=== PATIENT | female | born 1965 | race Caucasian/White ===

== ENCOUNTER 2023-04-20 13:37 | Outpatient (AMB) | payer OTHER, SELFPAY ==
--- NOTE | 2023-04-20 13:49 | HO.SPINEOV ---
Intake Intake Visit Reasons: Low back pain/herniated disc Intake Note: Ms. Lazo is here today c/o low back pain. MRI done @ [facility]/brought disc. Manager Front Required: No Assessment & Plan Assessment & Plan (1) Lumbar radiculopathy: Code(s): M54.16 - Radiculopathy, lumbar region Plan Milo is a 57 year old female who comes in with a CC of low back pain with radicular symptoms radiating down her right anterior thigh, the lateral side of her R tibialis terminating at her right EHL. She reports that sitting down for prolonged periods of time makes her symptoms worse. 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 She is self-referred to our office. She had an MRI completed at [facility] on April 04. She reports that she has had low back pain for the last 20 years since herniating a disc in her back in the late . She states that her pain has waxed and waned over the years at times becoming worse with periods of resolution and then worsening symptoms again. She was previously established with Dr. Mtz and saw him both in 2010 and a few months ago who evaluated her for this issue. He reportedly offered her a spinal fusion surgery at the level of her L5-S1 disc herniation. She is here today seeking a 2nd opinion. She reports she has tried taking tramadol, ibuprofen, Tylenol, and utilizing heat/ice without symptom improvement. She also has tried physical therapy, home care coordinator, acupuncture, and cortisone injections without sufficient relief. Of note she does report that she had cortisone injections in her SI joint as well as her low back, and states that she had no relief from this. PMH: Osteoarthritis, depression, PCOS, disc degeneration of the lumbar region, hysterectomy. Social hx: Patient does not smoke, disclosed no substance use. Medications: Tramadol, ibuprofen, Tylenol, Cymbalta, prednisone. Allergies: NKDA Physical exam: Sensation: Decreased sensation on R side in L5 dermatomal distribution. Grossly intact on L side. CN: II-XII grossly intact. Strength Testing Upper Extremities: - Deltoid 5/5 right 5/5 left - Biceps 5/5 right 5/5 left - Triceps 5/5 right 5/5 left - Wrist Ext 5/5 right 5/5 left - Wrist Flex 5/5 right 5/5 left - Hand issue clerk 5/5 right 5/5 left - Interossei 5/5 right 5/5 left Strength Testing Lower Extremities: - Hip flexion 4/5 right 5/5 left - Knee extension 4/5 right 5/5 left - Dorsiflexion 4/5 right 5/5 left - Plantar flex 5/5 right 5/5 left - EHL 4/5 right 5/5 left Pain limited due to weakness Reflexes: - Biceps (C5/C6) Right - 2+ Left - 2+ - Triceps (C7) Right - 2+ Left - 2+ - Patellar (L2-L4) Right - 2+ Left - 2+ - Achilles (S1) Right - 2+ Left - 2+ - Plantar (CORRECTIONAL SUPPLY SUPERVISOR) Right - 2+ Left - 2+ (-) Babinski (-) Mcfarland?s sign (-) Clonus (-) Italo's (-) Straight leg raise bilaterally Imaging review: MRI lumbar spine from April 07 2023 completed at [facility] shows moderate severity L4-5 central / left sided foraminal stenosis related to disc bulging, a left lateral disc herniation, and facet arthropathy. At L5-S1 there is a moderate central / right disc herniation causing S1 nerve root impingement. Flexion extension x-rays show mild degenerative scoliosis with grade 1 spondylolisthesis at L5 vertebrae. Impression: The patient is a 57-year-old female who comes in with a chief complaint of low back pain and radicular symptoms on her right side in a classic L5 dermatomal distribution. She comes in as a self-referral for a 2nd after seeing Dr. Mtz at [facility] who recommended a L5-S1 TLIF. Both her MRI and x-ray imaging show vertebral instability at the affected disc herniation levels. She will likely need a diskectomy with fusion due to his instability. We extensively discussed TLIF vs. OLIF procedures to address these issues and ultimately help resolve her chronic pain. She seemed interested in the proposed OLIF procedure. She will be scheduled with Dr. Kraft to further discuss the possibility of an L5-S1 OLIF, vs. other surgical interventions which he may chose to offer after reviewing her imaging. The total time spent with this visit with this patient was 60 minutes reviewing history, physical exam, MRI / X-ray imaging review, and implementation of treatment plan or further diagnostic testing Joaquín Kraft MD,PhD [facility] Orders: Orders XR lumbar spine 4V min Today M54.16 - Radiculopathy, lumbar region Coding Level of Care Code New Pt Level 5 (46167) Diagnoses Lumbar radiculopathy M54.16
== END 2023-04-20 14:53 | disposition home or self-care (01) ==
PROVIDERS: PCP Nurse Practitioner Gerontology; Visit Provider Physician Assistant
DX: M54.16 Radiculopathy, lumbar region (principal)
CPT/HCPCS: 99205

== ENCOUNTER 2023-04-20 13:37 | Outpatient (REF) | payer OTHER, SELFPAY ==
--- NOTE | ~2023-04-20 | XR_ITS ---
EXAMINATION: XR LUMBOSACRAL SPINE WITH OBLIQUES CLINICAL INFORMATION: Radiculopathy, lumbar region COMPARISON: None available. TECHNIQUE: AP, lateral and lateral flexion and extension views of the lumbar spine. Lateral view of the lumbosacral junction. FINDINGS: Mineralization is normal. There is no fracture or dislocation. The posterior elements appear intact. There is evidence of a mild convex left lumbar scoliosis. Above L4 vertebral alignment is normal. The disc spaces are preserved, although there are mild endplate degenerative changes. At L4-5 there is mild to moderate disc space narrowing. There is slight anterolisthesis of C4, likely due to degenerative facet arthropathy. There is relative disc space narrowing at L5-S1 without significant endplate degenerative change. There is mild retrolisthesis of C5. There is limited range of motion with flexion and extension. No instability is demonstrated. XR/XR lumbar spine 4V min IMPRESSION: Lower lumbar degenerative disc disease with mild anterolisthesis of L4 and mild retrolisthesis of L5. If there are persistent irregular symptoms, MRI is suggested for further evaluation.
== END 2023-04-20 13:38 | disposition home or self-care (01) ==
LOC: HO.HOSX 13:37
PROVIDERS: Visit Provider Physician Assistant
DX: M54.16 Radiculopathy, lumbar region (principal)
CPT/HCPCS: 72110; 99202

== ENCOUNTER 2023-06-26 13:24 | Outpatient (AMB) | payer OTHER, SELFPAY ==
--- NOTE | 2023-06-26 13:26 | HO.SPINEOV ---
Intake Intake Visit Reasons: discuss sx Intake Note: Ms. Lazo is here today to discuss surgery. Supervisor Heavy Equipment Required: No Assessment & Plan Assessment & Plan (1) Lumbar radiculopathy: Code(s): M54.16 - Radiculopathy, lumbar region Plan Dear colleague, On 06/26/2023, I saw for follow-up Milo Lazo to discuss surgical options. As you know, she suffering from right leg pain that radiates from the right side of her back to the outside of her lower leg with tingling of her big toe. She has a hard time standing or walking for prolonged periods of times. Laying down improves the symptoms. She had a significant flare-up last February. The symptoms have been present for many years. She is not working. I went over the MRI imaging and x-ray with the patient. I reviewed an MRI of the lumbar spine of 2002 and compared it to an MRI of March 2023. A L5-S1 disc herniations is seen compressing the right S1 nerve root. In addition, there is a grade 1 L4-5 spondylolisthesis with L4-5 spinal stenosis. A dynamic x-ray of the lumbar spine shows no instability. I offered her a right L5 laminotomy to decompress the L5 nerve root and an L5-S1 microdiskectomy to decompress the right S1 nerve root. A fusion is not required. She will call my office if she wants to proceed. I spent 20 minutes in his consult. Tyler Kraft MD, PhD Spine Fellowship Trained Neurosurgeon Director, [facility] [place] [facility] Coding Level of Care Code Est Pt Level 3 (31623) Diagnoses Lumbar radiculopathy M54.16
== END 2023-06-26 14:39 | disposition home or self-care (01) ==
PROVIDERS: PCP Nurse Practitioner Gerontology; Visit Provider Neurological Surgery
DX: M54.16 Radiculopathy, lumbar region (principal)
CPT/HCPCS: 99213

== ENCOUNTER → 2023-06-26 13:24 | Outpatient (BNVA) | payer OTHER, SELFPAY | PROVIDERS: PCP Nurse Practitioner Gerontology; Visit Provider Neurological Surgery | DX: M54.16 Radiculopathy, lumbar region (principal) | CPT/HCPCS: 99212 ==

== ENCOUNTER 2024-05-02 12:00 | Outpatient (RCR) | payer OTHER, SELFPAY | END 2024-05-27 11:44 | disposition home or self-care (01) | LOC: HO.PT 12:00 | PROVIDERS: PCP Nurse Practitioner Gerontology; Visit Provider Nurse Practitioner Gerontology | DX: M54.50 Low back pain, unspecified (principal) | CPT/HCPCS: 97110; 97140; 97162; 97530; 97535 ==

== ENCOUNTER 2024-05-13 08:23 | Outpatient (REF) | payer OTHER, SELFPAY ==
--- NOTE | ~2024-05-13 | US_ITS ---
EXAMINATION: US RETROPERITONEAL LIMITED (RENAL ONLY) CLINICAL INFORMATION: Cyst of kidney, acquired. COMPARISON: None available. TECHNIQUE: Real-time imaging of the kidneys. FINDINGS: RIGHT KIDNEY: 11.3 x 5.3 x 4.8 cm (SAG x AP x TRV). The kidney is normal in size, contour, and echogenicity. Renal cortical thickness is normal. No calculi or focal parenchymal lesions. No hydronephrosis. LEFT KIDNEY: 10.6 x 5.9 x 5.3 cm (SAG x AP x TRV). The kidney is normal in size, contour, and echogenicity. Renal cortical thickness is normal. No renal calculi or hydronephrosis. Simple appearing peripelvic cyst largest measuring 2.8 cm, for which no routine imaging follow-up is recommended. US/US renal BI IMPRESSION: No acute sonographic abnormalities. Electronically signed by: Vicky Wu MD 05/20/2024 04:04 PM EDT
== END 2024-05-13 08:24 | disposition home or self-care (01) ==
LOC: HO.US 08:23
PROVIDERS: PCP Nurse Practitioner Gerontology; Visit Provider Nurse Practitioner Family
DX: N28.1 Cyst of kidney, acquired (principal)
CPT/HCPCS: 76775

== ENCOUNTER 2024-07-30 08:50 | Outpatient (AMB) | payer OTHER, SELFPAY ==
--- NOTE | 2024-07-30 08:10 | A.OFFVIS_ITS ---
Intake Visit Reasons: US Results(set) Allergies No Known Allergies Allergy (Verified 07/30/24 08:48) Medication List - Last Reconciled 07/30/24 by CATHY Lou duloxetine 90 mg PO DAILY ibuprofen 600 mg PO Q8H PRN HPI Comments Details: Milo Mcgill is a pleasant 58 year old female patient of Dr. Chacon. She has a PMH of lumbar radiculopathy. She is being followed up on today via video telehealth as a new patient for renal cysts. In discussion with the patient today she reports to be doing and feeling well. She reports following up with neurosurgery here in having had an x-ray last year that noted renal cyst and would like to establish care for surveillance monitoring. She also reports noting episodes of urinary incontinence when climbing stairs. Recent renal imaging results reviewed with the patient today. Bilateral kidneys are normal in size, contour, and echogenicity. Bilateral kidneys with no calculi or hydronephrosis. Left kidney with simple appearing peripelvic cysts largest measuring 2.8 cm. No acute sonographic abnormalities. She otherwise denies urinary urgency, urinary frequency, nocturia, hematuria, dysuria, foul smelling urine, changes to urinary stream, flank pain, fever, and or chills. We discussed renal cysts as well as potential causes of episodes of urinary incontinence she experiences. We discussed further treatment options and risks and benefits of these treatment options. She otherwise offers no other issues or concerns at this time. Review of Systems Const All systems reviewed & are unremarkable except as noted in HPI and below Physical Exam Const General: cooperative, healthy appearing, comfortable, no acute distress, well developed, alert and awake Orientation/consciousness: patient oriented x3 Resp Effort & Inspection: normal respiratory effort and able to speak in complete sentences Neuro General: patient oriented x3 Psych Appearance: grossly normal and well kempt Mental Status: mental status grossly normal Speech and movement: Clear speech present Affect: normal affect Thought content: Normal thought content present Insight: Fair insight present (Psych) Judgement: Fair judgement present (Psych) Telehealth Telehealth Telehealth Platform: [facility] Location of provider rendering services: practice address Location of patient: address on file Patient Identification confirmed using: Name, : Yes Telehealth method: video Patient verbally consented to treatment: Yes Patient verbally consented to billing insurance company: Yes Patient informed of any privacy concerns related to visit: Yes Minutes spent on Phone/Video with Pt.: 18 Results Reviewed Results Reviewed: Date of Service: 05/13/24 EXAMINATION: US RETROPERITONEAL LIMITED (RENAL ONLY) FINDINGS: RIGHT KIDNEY: 11.3 x 5.3 x 4.8 cm (SAG x AP x TRV). The kidney is normal in size, contour, and echogenicity. Renal cortical thickness is normal. No calculi or focal parenchymal lesions. No hydronephrosis. LEFT KIDNEY: 10.6 x 5.9 x 5.3 cm (SAG x AP x TRV). The kidney is normal in size, contour, and echogenicity. Renal cortical thickness is normal. No renal calculi or hydronephrosis. Simple appearing peripelvic cyst largest measuring 2.8 cm, for which no routine imaging follow-up is recommended. IMPRESSION: No acute sonographic abnormalities. Assessment & Plan Assessment & Plan (1) Renal cyst: Code(s): N28.1 - Cyst of kidney, acquired Category: Medical (2) Stress incontinence: Code(s): N39.3 - Stress incontinence (female) (male) Category: Medical Plan Recent renal imaging results reviewed with the patient today; as noted above. Will refer to pelvic floor therapy. Discussed possible near future in office urodynamics for further assessment evaluation. Will continue with surveillance monitoring of renal cysts; imaging ordered for 1 year out. Information provided regarding pelvic floor exercises. Follow-up in 6 months with [facility]; or sooner with any issues, concerns, and or questions. Orders: Orders US renal BI 1 Year N28.1 - Cyst of kidney, acquired PT Evaluation and Treatment Today N39.3 - Stress incontinence (female) (male) Patient Instructions: The patient had an opportunity to ask questions regarding the treatment plan. All questions were answered. Physical exam, labs, and imaging were discussed and reviewed in detail. As well as risks, benefits, and discussion of treatment choices. No major barriers to understanding were identified. The patient expressed understanding and agreement with the above treatment plan. The patient was made aware they should contact our office by phone for worsening of their current condition, the appearance of new symptoms, or with any questions or concerns. Compliance is encouraged with any medications and follow up testing that is ordered. It is a privilege to be allowed the opportunity to participate in? your urological care.? Again, if you have any questions or concerns If you have any questions or concerns please do not hesitate to contact me. The office is [phone]. This note is constructed using voice recognition software. While every effort has been made to ensure accuracy executive community planning errors may have been included. Yours sincerely, CATHY Lou Coding Level of Care Code Tele New Pt Level 3 (93246) Diagnoses Renal cyst N28.1 Stress incontinence N39.3
== END 2024-07-30 08:54 | disposition home or self-care (01) ==
LOC: HO.HUSH 08:50
PROVIDERS: PCP Nurse Practitioner Gerontology; Visit Provider Nurse Practitioner Family
DX: N28.1 Cyst of kidney, acquired (principal); N39.3 Stress incontinence (female) (male)
CPT/HCPCS: 99203

== ENCOUNTER 2025-06-17 09:05 | Outpatient (REF) | payer MEDICARE, MEDICAID, SELFPAY ==
--- NOTE | ~2025-06-17 | US_ITS ---
CLINICAL HISTORY: N28.1 - Cyst of kidney, acquired US renal with Color Doppler Comparison: None Findings: Right kidney normal size and echotexture, 10.0 cm length. No hydronephrosis calculus or mass. Normal color flow. Left kidney normal size and echotexture, 10.8 cm length. No hydronephrosis calculus or mass. Normal color flow. Parapelvic cyst lower pole measuring 1.3 x 1.2 x 1.2 cm and 1.8 x 1.9 x 3.1 cm Impression: 1. Kidneys normal-size and position with normal cortical width and echotexture. Incidental parapelvic cysts left kidney. This document has been electronically signed by: Antwan Santos MD on 06/18/2025 11:52:16
== END 2025-06-17 09:06 | disposition home or self-care (01) ==
LOC: HO.US 09:05
PROVIDERS: PCP Nurse Practitioner; Visit Provider Nurse Practitioner Family
DX: N28.1 Cyst of kidney, acquired (principal)
CPT/HCPCS: 76775

== ENCOUNTER 2025-07-07 10:35 | Outpatient (AMB) | payer MEDICARE, MEDICAID, SELFPAY ==
--- NOTE | 2025-07-07 10:38 | A.OFFVIS_ITS ---
Intake Visit Reasons: US F/U Intake Note: Patient is present for US F/U Urology Medication:NONE Antibiotic Allergy:NONE Blood Thinner:NONE Refrigeration Repair Supervisor Required: No Allergies No Known Allergies Allergy (Verified 07/07/25 21:42) Medication List - Last Reconciled 07/07/25 by CATHY Lou duloxetine 90 mg PO DAILY ibuprofen 600 mg PO Q8H PRN HPI Comments Details: Milo Mcgill is a pleasant 59 year old female patient of Dr. Antonio. She has a PMH of lumbar radiculopathy. She presents to the office today for follow-up of her renal cysts and mixed urinary incontinence. In discussion with the patient today she reports to be doing and feeling well. She discusses having had recent bilateral carpal tunnel surgical intervention and has been healing well. Most recent renal imaging results reviewed with the patient today. 06/20 bilateral kidneys are normal in size and echotexture. No hydronephrosis or renal calculi noted bilaterally. Peripelvic cysts in the lower pole measuring 1.3 and 3.1 cm. She reports since her last office visit here she has a attended pelvic floor physical therapy. She does report how helpful this has been. She does continue to experience episodes of urinary urgency and frequency and mixed urinary incontinence however feels these symptoms have been manageable. She reports when she performs pelvic floor exercises at home she feels lower urinary tract symptoms are more manageable. We did discussed further treatment options and risks and benefits of these treatment options. She reports having followed up with her PCP and has recently been referred to urogynecology and has an appointment in the upcoming months. She otherwise denies nocturia, hematuria, dysuria, foul-smelling urine, changes to urinary stream, flank pain, fever, and or chills. In office urinalysis results reviewed with the patient today. All questions were answered. She otherwise offers no other issues or concerns at this time. Review of Systems Const All systems reviewed & are unremarkable except as noted in HPI and below Physical Exam Const General: cooperative, healthy appearing, comfortable, no acute distress, well developed, alert and awake Orientation/consciousness: patient oriented x3 Limitations: no limitations HEENT Head: Yes normal to inspection, Yes normocephalic and Yes atraumatic Ears: hearing grossly normal bilaterally Eyes General: appearance normal, both eyes and all related structures Neck Neck: Yes normal visual inspection and Yes trachea midline Chest Chest palpation & inspection: normal inspection of the chest Resp Effort & Inspection: normal respiratory effort and able to speak in complete sentences Cardio Rate: regular rate GI Inspection: Yes normal to inspection General: Yes no CVA tenderness Back/Spine/Pelvis Back: no CVA tenderness Skin General skin exam: no rashes or lesions noted Neuro General: patient oriented x3 Extrem General: Yes normal to inspection Psych Appearance: grossly normal and well kempt Mental Status: mental status grossly normal Speech and movement: Normal speech and movement present and Clear speech present Affect: normal affect Attitude: cooperative Thought process: Normal thought process present Thought content: Normal thought content present Insight: Fair insight present (Psych) Judgement: Fair judgement present (Psych) Results AMB Urinalysis, Automated UA Leukoctes 0 Killian/uL Last Edit by Jayesh Magdaleno CCM on 07/07/25 10:49 UA Nitrite Negative Last Edit by Jayesh Magdaleno CCM on 07/07/25 10:49 UA Urobilinogen 0.2 mg/dL Last Edit by Jayesh Magdaleno CCM on 07/07/25 10:4 9 UA Protein 0 mg/dL Last Edit by Jayesh Magdaleno CCM on 07/07/25 10:49 UA pH 6.0 Last Edit by Jayesh Magdaleno CCM on 07/07/25 10:49 UA Blood 10 Eddie/uL Last Edit by Jayesh Magdaleno CCM on 07/07/25 10:49 UA Specific [place] 1.010 Last Edit by Jayesh Magdaleno CCM on 07/07/25 10: 49 UA Ketone Negative Last Edit by Jayesh Magdaleno CCM on 07/07/25 10:49 UA Bilirubin 0 mg/dL Last Edit by Jayesh Magdaleno CCM on 07/07/25 10:49 UA Glucose 0 mg/dL Last Edit by Jayesh Magdaleno [facility] on 07/07/25 10:49 Results Reviewed Results Reviewed: Laboratory Last Values Urine pH (Auto) 6.0 07/07/25 10:49 Specific [place] (Auto) 1.010 07/07/25 10:49 Urine Protein (Auto) 0 mg/dL 07/07/25 10:49 Glucose (UA)(Auto) 0 mg/dL 07/07/25 10:49 Urine Ketones (Auto) Negative 07/07/25 10:49 Urine Blood (Auto) 10 Eddie/uL 07/07/25 10:49 Urine Nitrite (Auto) Negative 07/07/25 10:49 Urine Bilirubin (Auto) 0 mg/dL 07/07/25 10:49 Urine Urobilinogen (Auto) 0.2 mg/dL 07/07/25 10:49 Leukocyte Esterase (Auto) 0 Killian/uL 07/07/25 10:49 Date of Service: 06/17/25 Procedure(s): US renal BI Findings: Right kidney normal size and echotexture, 10.0 cm length. No hydronephrosis calculus or mass. Normal color flow. Left kidney normal size and echotexture, 10.8 cm length. No hydronephrosis calculus or mass. Normal color flow. Parapelvic cyst lower pole measuring 1.3 x 1.2 x 1.2 cm and 1.8 x 1.9 x 3.1 cm Impression: 1. Kidneys normal-size and position with normal cortical width and echotexture. Incidental parapelvic cysts left kidney. Assessment & Plan Assessment & Plan (1) Renal cyst: Code(s): N28.1 - Cyst of kidney, acquired Category: Medical (2) Urinary incontinence, mixed: Code(s): N39.46 - Mixed incontinence Category: Medical (3) Lower urinary tract symptoms: Code(s): R39.9 - Unspecified symptoms and signs involving the genitourinary system Category: Medical Plan In office urinalysis results with the patient today; as noted above. Most recent renal imaging results reviewed with the patient today; as noted above. We did discussed further treatment options of lower urinary tract symptoms patient is experiencing as well as risks and benefits of these interventions. All questions were answered. Will continue with surveillance monitoring at this time. Will obtain renal ultrasound in 1 year. Follow-up in 1 year with imaging and [facility]; or sooner with any issues, concerns, and or questions. Orders: Orders AMB Urinalysis Automated Today Z13.9 - Encounter for screening, unspecified US renal BI 1 Year N28.1 - Cyst of kidney, acquired Urine Cytology Today R31.29 - Other microscopic hematuria Patient Instructions: The patient had an opportunity to ask questions regarding the treatment plan. All questions were answered. Physical exam, labs, and imaging were discussed and reviewed in detail. As well as risks, benefits, and discussion of treatment choices. No major barriers to understanding were identified. The patient expr essed understanding and agreement with the above treatment plan. The patient was made aware they should contact our office by phone for worsening of their current condition, the appearance of new symptoms, or with any questions or concerns. Compliance is encouraged with any medications and follow up testing that is ordered. It is a privilege to be allowed the opportunity to participate in? your urological care.? Again, if you have any questions or concerns If you have any questions or concerns please do not hesitate to contact me. The office is [phone]. This note is constructed using voice recognition software. While every effort has been made to ensure accuracy tree climber errors may have been included. Yours sincerely, CATHY Lou Coding Level of Care Code Est Pt Level 3 (48158) Diagnoses Renal cyst N28.1 Urinary incontinence, mixed N39.46 Lower urinary tract symptoms R39.9
== END 2025-07-07 11:27 | disposition home or self-care (01) ==
LOC: HO.HUSH 10:36
PROVIDERS: PCP Nurse Practitioner; Visit Provider Nurse Practitioner Family
DX: N28.1 Cyst of kidney, acquired (principal); N39.46 Mixed incontinence; R39.9 Unspecified symptoms and signs involving the genitourinary system; Z13.9 Encounter for screening, unspecified
CPT/HCPCS: 99213

== ENCOUNTER 2025-07-07 10:35 | Outpatient (REF) | payer MEDICARE, MEDICAID, SELFPAY ==
--- OUTSIDE RECORDS SUMMARY | 2025-07-07 12:35 | XMS_ITS | Clinical Summary ---
Author Organization [facility] [place] [address] Care Team Providers Care Head Banquet Waitress Name Role Phone Heike Carbone MD Primary Care Provide r Social History Tobacco Use Types Packs/Day Years Used Date Smoking Tobacco: Never Assessed Comments Unknown Sex and Gender Information Value Date Recorded Sex Assigned at Not on file Legal Sex Female 9:05 PM EST Gender Identity Not on file Sexual Orientation Not on file Plan of Treatment Health Maintenance Due Date Last Done Comments Colorectal Cancer Screening: Colonoscopy 1966 DTaP,Tdap,and Td Vaccines (1 - Tdap) 1985 Hepatitis B Vaccines (1 of 3 - 19+ 3-dose series) 1985 Cervical Cancer Screening: Pap Smear 1987 Pneumococcal Vaccine: 50+ Years (1 of 1 - PCV) 2016 Zoster Vaccines (1 of 2) 2016 Cholesterol Screening (Lipid Panel) 09/27/2019 HIV Screening 09/27/2019 Hepatitis C Screening 09/27/2019 Social Influencers of Health Screening 09/27/2019 Depression Screening 08/27/2024 COVID-19 Vaccine ( - season) 2025 Influenza Vaccine (#1) 2025 Breast Cancer Screening 06/11/2025 06/11/20 23, 10/20/2021, 09/13/2020, Additional history exists RSV Immunization Adult Patients (1 - 1-dose 75+ series) 2041 HIB Vaccines Aged Out No longer eligi ble based on patient's age to complete this topic HPV Vaccines Aged Out No longer eligi ble based on patient's age to complete this topic Hepatitis A Vaccines Aged Out No long er eligible based on patient's age to complete this topic IPV Vaccines Aged Out No longer eligi ble based on patient's age to complete this topic MMR Vaccines Aged Out No longer eligi ble based on patient's age to complete this topic Meningococcal ACWY Vaccine Aged Out N o longer eligible based on patient's age to complete this topic Meningococcal B Vaccine Aged Out No l onger eligible based on patient's age to complete this topic RSV Immunization Patients Under 20 months Aged Out No longer eligible based on patient's age to complete this topic Varicella Vaccines Aged Out No longer eligible based on patient's age to complete this topic Procedures Procedure Name Priority Date/Time Associated Diagnosis Comments [facility] SCREENING DIGITAL Routine 06/11/2023 11:13 AM EDT Encounter for screening mammogram for malignant neoplasm of breast from Last 3 Months or Most Recently Relevant to Health Maintenance Results * [facility] SCREENING [facility]IGITAL (06/11/2023 11:13 AM EDT) Anatomical Region Laterality Modality Mammography 06/08/2023 7:58 AM EDT Narrative 06/11/2023 11:13 AM EDT [facility] Diagnostic Imaging Department [address] [place] [address] Patient: MILO LAZO /Age/Sex: 1965 - 57 - F Unit#: [id number] Location/Status: [facility]A/REG CLI [facility]em[facility] Ordering Physician: RADHA CHACON SENIOR PRODUCTION MANAGER [facility] Screening Digital - 06/09/23 - [id number] Report Status:Signed EXAM: [facility] Screening Digital EXAM DATE AND TIME: 06/09/2023 11:42 AM HISTORY: Screening. COMPARISON: 10/20/21, 09/13/20, 05/20/19, 02/11/18 TECHNIQUE: Bilateral digital breast tomosynthesis was performed in the CC and MLO projections. Computer aided detection with eduPad 3D 3.1 was employed. TISSUE DENSITY: b. There are scattered areas of fibroglandular density. FINDINGS: No suspicious masses, grouped microcalcifications, or areas of architectural distortion are seen. The skin and vascularity are unremarkable. IMPRESSION: Stable mammographic appearance of the breasts. No evidence of malignancy is seen. A negative mammogram in the presence of a clinically suspicious palpable abnormality does not preclude the possibility of malignancy or alter the indications for biopsy. BI-RADS: Category 1: Negative RECOMMENDATION(S): 1: Routine screening mammogram BILATERAL in 1 year. Dictating Physician: SOFIE FITZGERALD MD Electronically Signed by: SOFIE FITZGERALD MD Dic Date/Time: 06/11/231112 Sign date/Time: 06/11/23 111 Procedure Note Sofie Fitzgerald MD - 10/02/2023 [facility] Diagnostic Imaging Department [address] [place] [id number] Patient: ABELKACIEMILO /Age/Sex: 1965 - 57 - F Unit#: [id number] Location/Status: [facility] CLI Mnemonic/Ordering Site: [facility] Ordering Physician: RADHA CHACON SENIOR PRODUCTION MANAGER [facility] Screening Digital - 06/09/23 - [id number] Report Status:Signed EXAM: [facility] Screening Digital EXAM DATE AND TIME: 06/09/2023 11:42 AM HISTORY: Screening. COMPARISON: 10/20/21, 09/13/20, 05/20/19, 02/11/18 TECHNIQUE: Bilateral digital breast tomosynthesis was performed in the CCand MLO projections. Computer aided detection with eduPad 3D 3.1was employed. TISSUE DENSITY: b. There are scattered areas of fibroglandular density. FINDINGS: No suspicious masses, grouped microcalcifications, or areas ofarchitectural distortion are seen. The skin and vascularity are unremarkable. IMPRESSION: Stable mammographic appearance of the breasts. No evidence of malignancyis seen. A negative mammogram in the presence of a clinically suspicious palpable abnormality does not preclude the possibility of malignancy or alter the indications for biopsy. BI-RADS: Category 1: Negative RECOMMENDATION(S): 1: Routine screening mammogram BILATERAL in 1 year. Dictating Physician: SOFIE FITZGERALD MD Electronically Signed by: SOFIE FITZGERALD MD Dic Date/Time: 06/11/23 1113 Sign date/Time: 06/11/23 111 us Radha Chacon SENIOR PRODUCTION MANAGER IMG BI PROCEDURES Final Result from Last 3 Months or Most Recently Relevant to Health Maintenance Care Teams Head Banquet Waitress Relationship Specialty Start Date End Date Heike Carbone MD PCP - General Internal Medicine 05/15/19
== END 2025-07-07 10:36 | disposition home or self-care (01) ==
LOC: HO.LAB 10:35
PROVIDERS: PCP Nurse Practitioner; Visit Provider Nurse Practitioner Family
DX: N39.46 Mixed incontinence (principal); N28.1 Cyst of kidney, acquired; R39.9 Unspecified symptoms and signs involving the genitourinary system; Z13.89 Encounter for screening for other disorder
CPT/HCPCS: 81003; 88112; 99212